=== PATIENT | female | born 1950 | race Asian ===

== ENCOUNTER 2017-06-15 16:04 | Emergency (ER) | payer OTHER ==
--- NOTE | 2017-06-15 16:28 | PDOC ---
Rapid Medical Evaluation Time Seen by Provider: 06/15/17 16:24 Medical Evaluation: 06/15/17 16:24 I have performed a brief in-person evaluation of this patient. The patient presents with a chief complaint of rash to lower back x 2 weeks Patient reports being seen by doctor took prednisone, and cream but with no relief Pertinent physical exam finding are nad unlabored breathing lower back with erythema and skin eruption I have ordered the following: benadryl The patient will proceed to the ED for further evaluation.
[2017-06-15 16:30] VITALS: BP 139/92; PULSE 80; TEMP 97.5; BMI 26.2
[2017-06-15] MEDS ORDERED: diphenhydrAMINE HCL 25 MG CAPSULE (FP) PO ONE (16:30)
[2017-06-15] MEDS ORDERED: hydrOXYzine HCL 25 MG TABLET (FP) PO ONE ×2 (17:21→17:23)
--- NOTE | 2017-06-15 17:31 | PDOC ---
History of Present Illness - General Chief Complaint: Rash Stated Complaint: RASH ALL OVER THE BODY Time Seen by Provider: 06/15/17 16:24 History Source: Patient Exam Limitations: No Limitations - History of Present Illness Initial Comments: 06/15/17 17:32 This is 66-year-old woman with history of ulcerative colitis who presents with 2 weeks of rash that started in her bilateral axilla worked its way down to her lower back and lower extremities. Patient states she was seen by her primary doctor put her on a Medrol Dosepak and gave her steroid cream which had minimal relief. She states the Medrol Dosepak created GI discomfort but the cream has helped improve her symptoms. Patient still has more than half of mometasone cream from the previous prescription. She denies fevers, chills, abdominal pain , nausea, vomiting, diarrhea or shortness of breath. Past History - Past Medical History Allergies/Adverse Reactions: Allergies Allergy/AdvReac Type Severity Reaction Status Date / Time amoxicillin AdvReac Verified 06/15/17 16:25 Home Medications: Ambulatory Orders hydrOXYzine HCL [Atarax -] 25 mg PO TID #21 tablet 06/15/17 COPD: No HTN: Yes - Suicide/Smoking/Psychosocial Hx Smoking History: Never smoked Review of Systems - Review of Systems Able to Perform ROS?: Yes Is the patient limited Mozambican proficient: No Constitutional: No: Symptoms Reported HEENTM: No: Symptoms Reported Respiratory: No: Symptoms reported Cardiac (ROS): No: Symptoms Reported ABD/GI: No: Symptoms Reported : No: Symptoms Reported Musculoskeletal: No: Symptoms Reported Integumentary: Yes: See HPI Neurological: No: Symptoms reported Endocrine: No: Symptoms Reported Hematologic/Lymphatic: No: Symptoms Reported *Physical Exam - Vital Signs Last Vital Signs Temp Pulse Resp BP Pulse Ox 97.5 F L 80 19 139/92 96 06/15/17 16:25 06/15/17 16:25 06/15/17 16:25 06/15/17 16:25 06/15/17 16:25 - Physical Exam General Appearance: Yes: Appropriately Dressed. No: Apparent Distress HEENT: positive: Normal ENT Inspection Neck: positive: Trachea midline, Supple Respiratory/Chest: positive: Lungs Clear, Normal Breath Sounds. negative: Respiratory Distress, Accessory Muscle Use Cardiovascular: positive: Regular Rhythm, Regular Rate. negative: Murmur Gastrointestinal/Abdominal: positive: Normal Bowel Sounds, Soft. negative: Tender Musculoskeletal: positive: Normal Inspection. negative: CVA Tenderness Extremity: positive: Other Integumentary: positive: Rash (Fine diffuse raised pink rash to lower back, buttocks, lower extremities.) Neurologic: positive: Alert, Normal Response ED Treatment Course - Medications Given in the ED: ED Medications Discontinued Medications Generic Name Dose Route Start Last Admin Trade Name Freq PRN Reason Stop Dose Admin Diphenhydramine HCl 50 mg 06/15/17 16:30 06/15/17 17:25 Benadryl - PO 06/15/17 16:31 Not Given ONCE ONE Hydroxyzine HCl 50 mg 06/15/17 17:21 06/15/17 17:25 Atarax - PO 06/15/17 17:22 50 mg ONCE ONE Administration Medical Decision Making - Medical Decision Making 06/15/17 17:33 A/P: 66-year-old woman with history of ulcerative colitis with rash to back and lower extremities for 2 weeks Diffuse fine raised pink rash to lower back, buttocks, lower extremities Lungs clear to auscultation bilaterally Hydroxyzine 50 mg orally now Dermatology recommendation Discharge home to continue mometasone and Atarax *DC/Admit/Observation/Transfer Diagnosis at time of Disposition: Dermatitis - Discharge Dispostion Disposition: HOME Condition at time of disposition: Stable Admit: No - Prescriptions Prescriptions: hydrOXYzine HCL [Atarax -] 25 mg PO TID #21 tablet - Referrals Referrals: Buddy Andres [Primary Care Provider] - Valerie Li MD [Staff Physician] - - Patient Instructions Additional Instructions: Take Atarax 25 mg every 8 hours as needed for itching Continue taking the mometasone cream as previously prescribed. You've been given a recommendation to see Dr. Li who is a agricultural engineering teacher. Please call Dr. Li's office at the number provided for an evaluation within the next 3 days. Return to the emergency department for shortness of breath, drooling, difficulty swallowing or any other concerns. - Post Discharge Activity
== END 2017-06-15 17:44 | disposition home or self-care (01) ==
LOC: JERFT 16:04
DX: L30.9 Dermatitis, unspecified (principal); I10 Essential (primary) hypertension; Z87.19 Personal history of other diseases of the digestive system
CPT/HCPCS: 99281-25

== ENCOUNTER 2019-04-06 07:15 | Emergency (ER) | payer OTHER ==
[2019-04-06 07:28] VITALS: BMI 26.6
--- NOTE | 2019-04-06 07:37 | PDOC ---
History of Present Illness - General Chief Complaint: Headache Stated Complaint: WOUNDS,EAR RINGING Time Seen by Provider: 04/06/19 07:36 History Source: Patient Exam Limitations: No Limitations - History of Present Illness Initial Comments: 04/06/19 07:37 Lita Kingston is a 68F with PMH UC presenting with 2x abscesses and tinnitus in her right ear. Patient reports 10 years ago she had abscesses in her back that were drained by another hospital, but were left open to heal, resulting in some indentations in her back. Says that for the last few months she has had worsening of new abscesses, acute worsely in the last month with pain. Denies fever/chills, N/V/C /D, chest pain, SOB. No discharge from abscesses. Says she has 2, one new one in upper right back and one at the site of an old abscess. Also complaining of ringing in her right ear for the past few months, denies dizziness or nausea, denies vision changes. Has MARSHALL today which she says is intermittent and her regular headache she has had for months, not acutely worse at this time. Past History - Past Medical History Allergies/Adverse Reactions: Allergies Allergy/AdvReac Type Severity Reaction Status Date / Time amoxicillin AdvReac Verified 06/15/17 16:25 Home Medications: Ambulatory Orders hydrOXYzine HCL [Atarax -] 25 mg PO TID #21 tablet 06/15/17 COPD: No HTN: Yes - Psycho Social/Smoking Cessation Hx Smoking History: Never smoked Hx Alcohol Use: No Drug/Substance Use Hx: No Review of Systems - Review of Systems Able to Perform ROS?: Yes Constitutional: No: Chills, Fever, Weakness HEENTM: Yes: Tinnitus. No: Eye Pain, Blurred Vision, Throat Pain, Throat Swelling, Mouth Pain, Dental Problems Respiratory: No: Cough, Shortness of Breath Cardiac (ROS): No: Chest Pain, Edema, Irregular Heart Rate, Lightheadedness ABD/GI: No: Constipated, Diarrhea, Nausea, Vomiting : No: Symptoms Reported Musculoskeletal: No: Symptoms Reported Integumentary: No: Symptoms Reported Neurological: Yes: Headache. No: Numbness, Paresthesia, Tremors, Weakness, Unsteady Gait, Ataxia, Dizziness Endocrine: No: Symptoms Reported Hematologic/Lymphatic: No: Symptoms Reported All Other Systems: Reviewed and Negative *Physical Exam - Vital Signs Last Vital Signs Temp Pulse Resp BP Pulse Ox 98.1 F 78 16 171/97 H 96 04/06/19 07:25 04/06/19 07:25 04/06/19 07:25 04/06/19 07:25 04/06/19 07:25 - Physical Exam General Appearance: Yes: Nourished, Appropriately Dressed. No: Apparent Distress HEENT: positive: EOMI, Normal ENT Inspection, Normal Voice, Symmetrical, Pharynx Normal, Hearing Grossly Normal. negative: MABEL, Scleral Icterus (R), Scleral Icterus (L), TM Bulging, TM Dull, TM Erythema Neck: positive: Trachea midline, Normal Thyroid, Supple, Tender midline. negative: Tender, Lymphadenopathy (R), Lymphadenopathy (L) Respiratory/Chest: positive: Lungs Clear, Normal Breath Sounds. negative: Chest Tender, Respiratory Distress, Accessory Muscle Use, Crackles, Rales, Rhonchi, Stridor, Wheezing, Hyperresonant Cardiovascular: positive: Regular Rhythm, Regular Rate. negative: Edema, Murmur Musculoskeletal: positive: Normal Inspection. negative: CVA Tenderness Extremity: positive: Normal Capillary Refill, Normal Inspection, Normal Range of Motion, Pelvis Stable. 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 Denies any systemic symptoms, no fever/chills, no N/V. Will evaluate abscesses with US and I/D any underlying abscess. Getting CT head for evaluation of tinnitus/MARSHALL, giving 650 Tylenol for MARSHALL control. TM normal. Has history of US on mesalamine and aziothiaprine, no management needed at this time. 04/06/19 10:35 I/D performed, with pus and drainage from both abscesses. Dressed in antibiotic gel and loose gauze, still draining. CT shows L frontoparietal bone lesion with no intracranial mass or bleed, low suspicion of brain mass as cause of dizziness, but needs neurology f/u for tinnitus. TM exams normal. MARSHALL improved with Tylenol. Will discharge home with PMD and neuro f/u. Discussed results and wound care with patient in [place], as well as neurology follow-up. Discharge - Discharge Information Problems reviewed: Yes Clinical Impression/Diagnosis: Abscess, Tinnitus of right ear Headache Qualifiers: Headache type: unspecified Headache chronicity pattern: acute headache Intractability: not intractable Qualified Code(s): R51 - Headache Condition: Improved Disposition: HOME - Follow up/Referral Referrals: Buddy Andres [Primary Care Provider] - Cruz Madera MD [Staff Physician] - Kevin Arriaza MD [Staff Physician] - - Patient Discharge Instructions Patient Printed Discharge Instructions: DI for Skin Abscess Additional Instructions: Today you were evaluated for an abscess and ringing in your ear. Your abscess was drained and dressed. It will keep draining over the next few days until it heals. Please keep it clean and change the dressing every day. Your CT scan shows an unusual finding in the bone in your head. Please follow-up with your primary doctor and a neurologist for further care. If you experience fever/ chills, pain, nausea, numbness, or any other new or concerning symptoms, please return to the emergency room. - Post Discharge Activity
[2019-04-06] MEDS ORDERED: ACETAMINOPHEN 325 MG TABLET (FP) PO ONE (08:34)
[2019-04-06] MEDS ORDERED: ACETAMINOPHEN 325 MG TABLET (FP) ONE (09:02)
--- NOTE | 2019-04-06 09:40 | PDOC ---
Attending Attestation - Resident Resident Name: Felipe Ashley - ED Attending Attestation I have performed the following: I have examined & evaluated the patient, The case was reviewed & discussed with the resident, I agree w/resident's findings & plan, Exceptions are as noted - HPI HPI: 04/06/19 09:38 68 F with h/o UC presenting with abscess on her back, as well as tinnitus. Pt states that she has had recurrent abscesses on her back that have required I&D. Pt notes that the current abscess on her upper back has been progressively worsening over the past month. Pt denies F/C. Denies any drainage. Pt also reports some pain at the site of an old abscess on her lower back. Pt also notes intermittent R ear ringing for several monhs. No dizziness. Has intermittent headache as well. Denies N/V. Denies focal weakness/numbness. - Physicial Exam PE: 04/06/19 09:39 See resident exam - Medical Decision Making 04/06/19 09:39 68 F with abscess. Also complaining of intermittent MARSHALL and tinnitus x several months. - CT head - I&D abscess 04/06/19 10:52 No acute changes on head CT Abscesses drained Pt is well appearing, with normal vitals. Clinically stable for DC at this time. I discussed the physical exam findings, ancillary test results and final diagnoses with the patient. I answered all of the patient's questions. The patient was satisfied with the care received and felt comfortable with the discharge plan and treatment plan. The patient agrees to follow up with the primary care physician within 24-72 hours.
[2019-04-06 11:14] VITALS: BP 160/92; PULSE 77; TEMP 98.6
== END 2019-04-06 10:46 | disposition home or self-care (01) ==
LOC: JER 07:15
PROC: 0J970ZZ Drainage of Back Subcutaneous Tissue and Fascia, Open Approach (ICD-10-PCS; principal; 2019-04-06)
DX: L02.212 Cutaneous abscess of back [any part, except buttock and flank] (principal); R51 Headache; H93.11 Tinnitus, right ear; Z88.0 Allergy status to penicillin
CPT/HCPCS: 70450-TC; 99282-25